=== PATIENT | male | born 1995 | race Two or more races ===

== ENCOUNTER 2016-07-20 20:08 | Emergency (ER) | payer MEDICAID ==
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
[2016-07-20] MEDS ORDERED: AMOXICILLIN/CLAVULANATE POT 875/125 MG TAB PO ONE (20:16)
[2016-07-20 20:20] VITALS: BP 143/97; PULSE 92; RESP 16; TEMP 98.2; O2SAT 96
[2016-07-20] MEDS ORDERED: HYDROCOD/APAP 5/325 PREPACK#6 BTL TAKEHOME ONE (20:23)
[2016-07-20] MEDS: TDAP ADULT 0.5 ML INJ (BOOSTRIX) IM ONE ×2 (20:49→21:38)
== END 2016-07-20 21:56 | disposition home or self-care (01) ==
LOC: EDUNIT#
PROC: 09Q1XZZ Repair Left External Ear, External Approach (ICD-10-PCS; principal; 2016-07-20)
DX: S01.85XA Open bite of other part of head, initial encounter (principal); Z23 Encounter for immunization; Z87.891 Personal history of nicotine dependence; W54.0XXA Bitten by dog, initial encounter